=== PATIENT | female | born 1990 | race American Indian/Alaskan Native ===

== ENCOUNTER → 2025-01-16 | Outpatient (CLI) | payer OTHER, SELFPAY ==
--- NOTE | 2025-01-16 15:30 | XR_ITS ---
Examination: Bilateral wrists 6 views TECHNIQUE: AP oblique lateral atrium is still 6 views Date and time: January 16, 2025 1529 hours INDICATIONS: Bilateral wrist pain on the left side 2 years on the right side one year more prominently involving the first digits FINDINGS: Bilateral mild osteoarthritis radiocarpal and first carpometacarpal joints No erosive arthritis No fractures No avascular necrosis IMPRESSION: Bilateral mild osteoarthritis radiocarpal and first carpometacarpal joints.
--- NOTE | 2025-01-16 15:30 | XR_ITS ---
Examination: Bilateral hands, 6 views. Technique: AP, Oblique, Lateral each hand total 6 views Date and time of exam: January 16, 2025 1551 hours INDICATIONS: Bilateral hand pain on the left 2 years on the right 1 year more prominent involving the first digits FINDINGS: Mild juxta-articular bone demineralization No fracture or dislocation involving either hand Mild diffuse narrowing joints of the wrist and hand bilaterally, not more prominent involving the first digits No erosive arthritis No cortical bone destruction No opaque foreign bodies IMPRESSION: Mild nonspecific narrowing joints of the wrist and hand bilaterally. No erosive arthritis
== END | disposition home or self-care (01) ==
PROVIDERS: PCP Physician Assistant; Referring Provider Nurse Practitioner Gerontology; Visit Provider Nurse Practitioner Gerontology
DX: M25.842 Other specified joint disorders, left hand (principal); M25.841 Other specified joint disorders, right hand; M19.032 Primary osteoarthritis, left wrist; M19.031 Primary osteoarthritis, right wrist
CPT/HCPCS: 73110; 73130